=== PATIENT | male | born 1965 | race Caucasian/White ===

== ENCOUNTER 2020-11-18 15:45 | Outpatient (REF) | payer OTHER, SELFPAY | END 2020-11-18 15:46 | disposition home or self-care (01) | LOC: HO.LAB 15:45 | PROVIDERS: Visit Provider Internal Medicine | DX: Z20.822 Contact with and (suspected) exposure to COVID-19 (principal) | CPT/HCPCS: 36415; C9803; U0003 ==

== ENCOUNTER 2025-07-17 11:45 | Outpatient (AMB) | payer OTHER, SELFPAY ==
--- OUTSIDE RECORDS SUMMARY | 2025-07-17 11:46 | XMS_ITS | Encounter Summary ---
Author Organization [facility] Address [address] [place] [address] Care Team Providers Care Data Assistant Name Role Phone Sary Gregorio MD Primary Care Provider [phone] Reason for Visit * Reason Onset Date Comments Appointment 07/13/2025 1st notification Encounter Details Date Type Department Care Team ([facility] st Contact Info) Description 07/13/2025 Telephone Lung Screening Program - [address] [phone] Maryam Ann MA Social History Tobacco Use Types Packs/Day Years Used Date Smoking Tobacco: Every Day Cigarettes 1 40.6 Started: 11/24/1984 Smokeless Tobacco: Never Comments:Smoking 10 cigs geeta ly Alcohol Use Standard Drinks/Week Comments Not Currently 0 (1 standard drink = 0.6 oz pur e alcohol) Sex and Gender Information Value Date Recorded Sex Assigned at Not on file Legal Sex Male 1:16 PM EST Gender Identity Not on file Sexual Orientation Not on file documented as of this encounter Progress Notes * Maryam Ann MA - 07/13/2025 3:08 PM EDT Franco Kerr was contacted by the Lung Cancer Screening Program today to confirm the appointment of their Lung Cancer Screening. The patient is currently scheduled to have their screening on Wednesday July 30, 2025, at 915 Am at [facility].No answer left message For all screenings scheduled during the week, the patient will check in at Patient Registration on the first floor of the [facility] hospital. For screenings that take place on the weekend or after 5pm, check-in directly in Radiology. The patient was given the Lung Cancer Screening Program phone number, , to contact if they have any additional questions, concerns or need to reschedule. Patients are encouraged to call our office and reschedule if they are exhibiting any cold-like symptoms, have recently been treated for Pneumonia or Influenza (the flu) or have had another CT of their Chest since their last screening. documented in this encounter Plan of Treatment Upcoming Encounters Date Type Department Care Team (Late st Contact Info) Description 07/30/2025 9:15 AM EDT Appointment [facility] CT Scan [address] [place] [address] 09/14/2025 11:30 AM EST Office Visit Adult [address] [phone] Sary Gregorio MD [address] [place], [place] 12/08/2025 3:30 PM EST Office Visit Pulmonolgy - [place] [address] [phone] Joe Poole MD [address] [address] 05/24/2026 3:00 PM EDT Office Visit [address] [phone] Sary Gregorio MD [address] [place], [place] documented as of this encounter Visit Diagnoses Not on filedocumented in this encounter Care Teams Data Assistant Relationship Specialty Start Date End Date Sary Gregorio MD [address] [place], [place] PCP - General 01/14/23 documented as of this encounter
--- OUTSIDE RECORDS SUMMARY | 2025-07-17 11:46 | XMS_ITS | Clinical Summary ---
Author Organization [address] Address [address] [place] [phone] Phone Care Team Providers Care Snack Steward Name Role Phone Sary Gregorio MD Primary Care Provider [phone] Allergies Active Allergy Reactions Criticality Noted Date Comments Ciprofloxacin GI intolerance 07/09/2025 Medications SUMAtriptan (IMITREX) 25 mg tablet Take 1 tablet (25 mg total) by mouth. 03/05/20 24 Active ipratropium-alb uteroL (DUONEB) 0.5-2.5 mg/3 mL nebulizer solution Inhale 3 mL by mouth. 01/30/20 24 Active acetaminophen (TYLENOL 8 HOUR) 650 mg 8 hr tablet Take 1 tablet (650 mg total) by mouth every 8 (eight) hours if needed. OTC 01/30/20 24 Active sildenafiL (VIAGRA) 50 mg tablet Take 1 tablet (50 mg total) by mouth as needed. 12/03/19 24 Active cetirizine (ZyrTEC) 10 mg tablet Take 1 tablet (10 mg total) by mouth. Prescribed by Dr. Poole 01/30/20 23 Active amLODIPine (NORVASC) 5 mg tablet Take 1 tablet (5 mg total) by mouth 1 (one) time each day. 90 each 04/15/20 25 Active albuterol HFA (PROAIR HFA ; PROVENTIL HFA ; VENTOLIN HFA) 90 mcg/actuation inhalerIndicati ons:COPD exacerbation (CMS/HCC V24, CMS/HCC V28),Tobacco dependency Inhale 2 puffs by mouth every 4 (four) hours if needed for wheezing. 6.7 g 2 05/21/20 25 Active albuterol 2.5 mg /3 mL (0.083 %) nebulizer solution Take 3 mL (2.5 mg total) by nebulization every 6 (six) hours if needed for wheezing. 1080 mL 05/21/20 25 Active fluticasone-yandy meterol (ADVAIR DISKUS) 250-50 mcg/dose diskus inhalerIndicati ons:COPD exacerbation ([facility] V24, [facility] V28),Tobacco dependency Inhale 1 puff by mouth 2 (two) times a day. 1 each 1 05/21/20 25 Active cyclobenzaprine (FLEXERIL) 5 mg tabletIndicatio ns:muscle spasm Take 1 tablet (5 mg total) by mouth 2 (two) times a day if needed for muscle spasms. 30 tablet 06/29/20 25 2024 Active predniSONE (DELTASONE) 20 mg tablet Take 60 mg PO daily for 3 days, then take 40 mg PO daily for 3 days, then 20 mg PO daily for 3 days, then stop 18 tablet 04/15/20 25 2024 Discontinued Active Problems Problem Noted Date Diagnosed Date Asthma 09/04/2024 Acute intractable headache 01/30/2024 Pain in both feet 01/30/2024 Erectile dysfunction 12/03/2023 Pulmonary nodules 11/27/2017 Chronic obstructive pulmonar y disease ([facility] V24, [facility] V28) 11/27/2017 Overview (09/04/2024): Followed by Dr. Awad. LDCT in 2020, follow up in 12 months Substance abuse ([facility] V24, [facility] V28) 02/27 Essential hypertension 08/30/2015 Cyclical vomiting 08/17/2015 Gastritis 08/17/2015 Hyperlipidemia 07/02/2013 Chronic back pain 12/29/2012 Herniated lumbar intervertebral disc 11/24/2012 Cigarette smoker motivated to quit 08/25/2012 Encounters Date Type Department Care Team Description 07/13/2025 Telephone Lung Screening Program - [address] [phone] Maryam Ann [place] 07/09/2025 9:30 AM EDT Office Visit Adult [address] [phone] Akilah Whiting PA Acute pain of right shoulder (Primary Dx); Essential hypertension 07/07/2025 Telephone Adult [address] [phone] Heidy Merrill MA 06/30/2025 Telephone Adult Medicine [address] [phone] Sary Gregorio MD 06/29/2025 9:34 AM EDT - 06/29/2025 11:59 PM EDT Hospital Encounter [address] [phone] SOB (shortness of breath) Discharge Disposition: Home or Self Care 06/29/2025 9:34 AM EDT - 06/29/2025 11:59 PM EDT Hospital Encounter [address] [phone] Acute pain of right shoulder Discharge Disposition: Home or Self Care 06/29/2025 9:00 AM EDT Office Visit [address] [phone] Denise Perez NP Acute pain of right shoulder (Primary Dx); Primary hypertension; Tobacco dependency; Encounter for smoking cessation counseling 06/28/2025 Telephone Adult [address] [phone] Sary Gregorio MD 06/07/2025 8:15 AM EDT Office Visit [address] [place] [phone] Joe Poole MD Chronic obstructive pulmonary disease, unspecified COPD type (CMS/HCC V24, CMS/HCC V28) (Primary Dx); Tobacco abuse; SHERMAN (obstructive sleep apnea) 06/01/2025 Telephone Pulmonolgy [facility] [address] [phone] Joe Poole MD 05/[facility] 175 [facility] [address] [place] [phone] Joe Poole MD 05/21/2025 3:00 PM EDT Office Visit Adult [address] [phone] Sary Gregorio MD Annual physical exam (Primary Dx); Primary hypertension; Chronic obstructive pulmonary disease, unspecified COPD type (CMS/HCC V24, CMS/HCC V28); Erectile dysfunction, unspecified erectile dysfunction type; COPD exacerbation (CMS/HCC V24, CMS/HCC V28); Tobacco dependency; Groin lump; Hyperlipidemia, unspecified hyperlipidemia type; Hearing loss, unspecified hearing loss type, unspecified laterality 05/03/2025 Telephone Adult [address] [phone] Sary Gregorio MD 05/01/2025 Telephone Adult [address] [phone] Dilan Panchal MD from Last 3 Months Immunizations Name Administration Dates Next Due Pfizer SARS-CoV-2 COVID-19, mRNA, LNP-S, preservative free 04/04/2021,03/14/2021 Pneumococcal polysaccharide 23 valent (Pneumovax 23) 2yo and older 09/21/2014 Surgical History Surgery Date Site/Laterality Comments HERNIA REPAIR 01/04/2014 PROCEDURE: REPAIR UMBILICAL HERNIA; COMMENT: [facility]; mesh repair. UPPER GASTROINTESTINAL ENDOSCOPY 09/03/2014 PROCEDURE: ID UPPER GI ENDOSCOPY PERFORMED; COMMENT: [facility]; gastric erythema; bx done: Medical History Medical History Date Comments Back pain DX:Back pain HTN (hypertension) DX:HTN (hyper tension) Asthma DX:Asthma History of DVT (deep vein thrombosis) 06/13/2017 DX:History of DVT (deep vein thrombosis) Family History Medical History Relation Name Comments Autoimmune disease Neg Hx Blindness Neg Hx Breast cancer Neg Hx Cataracts Neg Hx Colon cancer Neg Hx Coronary artery disease Neg Hx Diabetes Neg Hx Glaucoma Neg Hx Heart attack Neg Hx Heart failure Neg Hx Hyperlipidemia Neg Hx Hypertension Neg Hx Macular degeneration Neg Hx Mental illness Neg Hx Prostate cancer Neg Hx Sleep apnea Neg Hx Strabismus Neg Hx Thyroid disease Neg Hx Social History Tobacco Use Types Packs/Day Years Used Date Smoking Tobacco: Every Day Cigarettes 1 40.6 Started: 11/24/1984 Smokeless Tobacco: Never Tobacco Cessation:Ready to Q uit: Not Asked; Counseling Given: Not Answered Comments:Smoking 10 cigs daily Alcohol Use Standard Drinks/Week Comments Not Currently 0 (1 standard drink = 0.6 oz pur e alcohol) Sex and Gender Information Value Date Recorded Sex Assigned at Not on file Legal Sex Male 1:16 PM EST Gender Identity Not on file Sexual Orientation Not on file Obstetrics History Last Filed Vital Signs Vital Sign Reading Time Taken Comments Blood Pressure 150/96 07/09/2025 9:27 AM EDT PROVIDER WILL BE RECHECK, NO C/P, NO SOB Pulse 91 07/09/2025 9:27 AM EDT Temperature 36.6 C (97.8 F) 07/09/2025 9:24 AM EDT Respiratory Rate 14 07/09/2025 9:24 AM EDT Oxygen Saturation 93% 07/09/2025 9:2 4 AM EDT Inhaled Oxygen Concentration - - Weight 98.9 kg (218 lb) 07/09/2025 9:24 AM EDT Height 190.5 cm (6' 3 ) 07/09/2025 9:24 AM EDT Body Mass Index 27.25 07/09/2025 9:24 AM EDT Plan of Treatment Upcoming Encounters Date Type Department Care Team (Late st Contact Info) Description 07/30/2025 9:15 AM EDT Appointment [facility] CT Scan [address] [place] [address] 09/14/2025 11:30 AM EST Office Visit Adult Medicine [facility] [address] [place] [phone] Sary Gregorio MD [address] [place] [address] 12/08/2025 3:30 PM EST Office Visit Pulmonolgy - [place] 175 [facility] [address] [place] [phone] Joe Poole MD 175 [facility] [place] [address] 05/24/2026 3:00 PM EDT Office Visit Adult Medicine [facility] [address] [place] [phone] Sary Gregorio MD [address] [place] [address] Health Maintenance Due Date Last Done Comments Hypertension/CHF/CAD Annual BMP Blood Test 09/12/2023 09/12/2022 COVID-19 Vaccine ( season) 2025 04/04/2021, 03/14/2021 Influenza Vaccine (#1) 2025 08/29/2020, 2009 Lung Cancer Screening (Low Dose CT) 07/29/2025 07/29/2024, 07/25/2023, 07/23/2022, Additional history exists Colorectal Cancer Screening: Colonoscopy 11/04/2025 Postponed from 10/13/2022 (Patient Refused) DTaP,Tdap,and Td Vaccines (1 - Tdap) 11/04/2025 Postponed from 1986 (Patient Refused) Depression Screening 11/04/2025 Postpon ed from 11/04/2024 (Patient Refused) HIV Screening 11/04/2025 Postponed from 10/13/2022 (Patient Refused) Hepatitis A Vaccines (1 of 2 - Risk 2-dose series) 11/04/2025 Postponed from 1986 (Patient Refused) Hepatitis B Vaccines (1 of 3 - 19+ 3-dose series) 11/04/2025 Postponed from 1986 (Patient Refused) Pneumococcal Vaccine: 50+ Years (2 of 2 - PCV) 11/04/2025 09/21/2014, 07/18/2010 Postponed from 09/21/2015 (Patient Refused) Zoster Vaccines (1 of 2) 11/04/2025 Pos tponed from 2017 (Patient Refused) Social Influencers of Health Screening 05/21/2026 05/21/2025, 02/28/2024 Cholesterol Screening (Lipid Panel) 09/12/2027 09/12/2022, 09/12/2022 Hepatitis C Screening Completed 06/29/2021 HIB Vaccines Aged Out No longer eligi ble based on patient's age to complete this topic HPV Vaccines Aged Out No longer eligi ble based on patient's age to complete this topic IPV Vaccines Aged Out No longer eligi ble based on patient's age to complete this topic MMR Vaccines Aged Out No longer eligi ble based on patient's age to complete this topic Meningococcal ACWY Vaccine Aged Out N o longer eligible based on patient's age to complete this topic Meningococcal B Vaccine Aged Out No l onger eligible based on patient's age to complete this topic RSV Immunization Patients Under 20 months Aged Out No longer eligible based on patient's age to complete this topic Varicella Vaccines Aged Out No longer eligible based on patient's age to complete this topic Procedures Procedure Name Priority Date/Time Associated Diagnosis Comments XR CHEST 2 VIEWS Routine 06/29/2025 9:52 AM EDT SOB (shortness of breath) XR SHOULDER 2+ VIEWS RIGHT Routine 06/29/2025 9:52 AM EDT Acute pain of right shoulder CT LUNG SCREENING LOW DOSE Routine 07/29/2024 6:12 PM EDT Encounter for screening for malignant neoplasm of respiratory organs HM ANNUAL BMP BLOOD TEST Routine 09/12/2022 LIPID PANEL Routine 09/12/2022 from Last 3 Months or Most Recently Relevant to Health Maintenance Results * XR Chest 2 Views (06/29/2025 9:52 AM EDT) Anatomical Region Laterality Modality Body Radiographic Breanna ging 06/29/2025 10:3 1 AM EDT Narrative 06/29/2025 10:32 AM EDT Chest, 2 views. History shortness of breath. Comparison with previous studies, latest from 11/13/2023. There are coarse linear densities in the right middle lobe most likely due to arm scarring. There is no pneumothorax, pleural effusions or acute focal consolidations. Cardiomediastinal silhouette is unremarkable. Again noted are degenerative changes in the thoracic spine. CONCLUSIONS: Findings suggestive of atelectasis/scarring in the right middle lobe. No new focal abnormalities. -------- FINAL REPORT -------- Dictated By: Anjali Buenrostro Dictated Date: 06/29/2025 10:31 ET Assigned Physician: Anjali Buenrostro Reviewed and Electronically Signed By: Anjali Buenrostro Signed Date: 06/29/2025 10:32 ET Workstation ID: [id number] Transcribed By: Self Edit Transcribed Date: 06/29/2025 10:31 ET Procedure Note Anjali Buenrostro MD - 06/29/2025 Chest, 2 views. History shortness of breath. Comparison with previous studies, latest from 11/13/2023. There are coarse linear densities in the right middle lobe most likely dueto arm scarring. There is no pneumothorax, pleural effusions or acutefocal consolidations. Cardiomediastinal silhouette is unremarkable. Againnoted are degenerative changes in the thoracic spine. CONCLUSIONS: Findings suggestive of atelectasis/scarring in the rightmiddle lobe. No new focal abnormalities. -------- FINAL REPORT -------- Dictated By: Anjali Buenrostro Dictated Date: 06/29/2025 10:31 ET Assigned Physician: Anjali Buenrostro Reviewed and Electronically Signed By: Anjali Buenrostro Signed Date: 06/29/2025 10:32 ET Workstation ID: [id number] Transcribed By: Self Edit Transcribed Date: 06/29/2025 10:31 ET us Sary Gregorio MD IMG XR PROCEDURES Final Res ult * XR Shoulder 2+ Views Right (06/29/2025 9:52 AM EDT) Anatomical Region Laterality Modality Upper Extremities, Shoulder Right Radi ographic Imaging 06/29/2025 10:0 8 PM EDT Narrative 06/29/2025 10:08 PM EDT Right shoulder, 4 views. History pain. There are moderate degenerative changes in the AC joint and mild degenerative changes in the glenohumeral joint. There is no visible fractures, dislocations or abnormal soft tissue calcifications. CONCLUSIONS: Degenerative changes as detailed. -------- FINAL REPORT -------- Dictated By: Anjali Buenrostro Dictated Date: 06/29/2025 22:08 ET Assigned Physician: Anjali Buenrostro Reviewed and Electronically Signed By: Anjali Buenrostro Signed Date: 06/29/2025 22:08 ET Workstation ID: [id number] Transcribed By: Self Edit Transcribed Date: 06/29/2025 22:08 ET Procedure Note Anjali Buenrostro MD - 06/29/2025 Right shoulder, 4 views. History pain. There are moderate degenerative changes in the AC joint and milddegenerative changes in the glenohumeral joint. There is no visiblefractures, dislocations or abnormal soft tissue calcifications. CONCLUSIONS: Degenerative changes as detailed. -------- FINAL REPORT -------- Dictated By: Anjali Buenrostro Dictated Date: 06/29/2025 22:08 ET Assigned Physician: Anjali Buenrostro Reviewed and Electronically Signed By: Anjali Buenrostro Signed Date: 06/29/2025 22:08 ET Workstation ID: [id number] Transcribed By: Self Edit Transcribed Date: 06/29/2025 22:08 ET us Denise Perez CONDUIT HELPER IMG XR PROCEDURES Final Resu lt * CT LUNG SCREENING LOW DOSE (07/29/2024 6:12 PM EDT) Anatomical Region Laterality Modality Computed Tomogra phy 07/29/2024 7:52 AM EDT Narrative 07/29/2024 6:[address] [facility] Diagnostic Imaging Department [address] [place] [phone] Patient: FRANCO KERR /Age/Sex: 1965 - 59 - M Unit#: [id number] Location/Status: SPDICATLS/REG CLI Mnemonic/Ordering Site: [facility] Ordering Physician: ROSE AWAD MD CT Lung Screening Low Dose - 07/29/24 - 0755 Report Status:Signed PROCEDURE: CT chest lung cancer screening low dose examination. INDICATION: CT lung screening. TECHNIQUE: Chest CT without intravenous contrast was performed. Low-dose examination was performed. Reformatted images were evaluated. DOSE: CTDIvol: 4.8mGy. Total exam DLP: 175.8mGy-cm COMPARISON: CT chest July 2023 FINDINGS: NODULES: No significant nodules are identified. LUNGS: Minimal atelectasis at the lung bases. No consolidation. OTHER: Limited views of the upper abdomen appear normal. Mediastinum appears within normal limits. Coronary atherosclerotic disease. Mild degenerative changes are noted throughout the spine. IMPRESSION: No significant nodules identified. Lung-RADS 1. Follow up examination is advised in one year. Dictating Physician: SARAH WAY MD Electronically Signed by: SARAH WAY MD Dic Date/Time: 07/29/241805 Sign date/Time: 07/29/241811 Procedure Note Sarah Way MD - 08/19/2024 [facility] Diagnostic Imaging Department [address] [place] [phone] Patient: FRANCO KERR /Age/Sex: 1965 - 59 - M Unit#: [id number] Location/Status: SPDICATLS/REG CLI Mnemonic/Ordering Site: [facility] Ordering Physician: ROSE AWAD MD CT Lung Screening Low Dose - 07/29/24 - 0755 Report Status:Signed PROCEDURE: CT chest lung cancer screening low dose examination. INDICATION: CT lung screening. TECHNIQUE: Chest CT without intravenous contrast was performed.Low-dose examination was performed. Reformatted images were evaluated. DOSE: CTDIvol: 4.8mGy. Total exam DLP: 175.8mGy-cm COMPARISON: CT chest July 2023 FINDINGS: NODULES: No significant nodules are identified. LUNGS: Minimal atelectasis at the lung bases. No consolidation. OTHER: Limited views of the upper abdomen appear normal. Mediastinumappears within normal limits. Coronary atherosclerotic disease. Milddegenerative changes are noted throughout the spine. IMPRESSION: No significant nodules identified. Lung-RADS 1. Follow up examination is advised in one year. Dictating Physician: SARAH WAY MD Electronically Signed by: SARAH WAY MD Dic Date/Time: 07/29/241805 Sign date/Time: 07/29/241811 Rose Awad MD [facility] CT PROCEDURES Final Result * Annual BMP Blood Test (09/12/2022) Annual BMP Blood Test abstracted Historical Provider HEALTH MAINTENANCE Final Result * (ABNORMAL) Lipid panel (09/12/2022) Pathologist [facility] LDL/HDL Ratio 4 0 - 4 Triglycerides 98 0 - 150 mg/dL Cholesterol 219(A) 0 - 200 mg/dL HDL 60 >=40 mg/dL LDL Cholesterol 140(A) 0 - 100 mg/dL Blood Venous blood specimen / Unknown Historical Provider LAB BLOOD ORDERABLES May l Result from Last 3 Months or Most Recently Relevant to Health Maintenance [place] [address] [place] [address] [employer] Care Teams Snack Steward Relationship Specialty Start Date End Date Sary Gregorio MD [address] [place] [address] PCP - General 01/14/23
--- OUTSIDE RECORDS SUMMARY | 2025-07-17 11:47 | XMS_ITS ---
Author Name [facility] Organization Unknown Care Team Organization Name Specialty Phone Email Start Date End Da te [facility] ADAM NIETO Primary Care [email or web address] 03/11/2023 4 [facility] Goldie Marie Primary Care 09/11/2022 4
--- NOTE | 2025-07-17 11:59 | AM.OFFWIN_ITS ---
Intake Vital Signs 07/17/25 12:02 Height 6 ft 3 in Weight 227 lb BMI 28.4 BP 122/70 Blood Pressure Location Lt brachial Position Sitting Respiration 16 Pulse 90 Pulse Source Pulse Oximeter Temp 98.0 F Temp Source Oral Pulse Oximetry (%) 94 Oxygen Delivery Method Room Air Intake Visit Reasons: WAREHOUSE ASSISTANT-Sore throat Intake Note: Pt is here today c/o sorethroat x5days Allergies ciprofloxacin Adverse Reaction (Verified 07/17/25 12:04) hives HPI HPI Comments History of Present Illness Details This is a 60-year-old male with a past medical history of hypertension and COPD, not currently oxygen dependent, presenting for evaluation of a sore throat that he has had for the past 6 days. Patient denies having any fevers, chills, ear pain, cough or shortness of breath. Patient has taken Tylenol only without relief of his discomfort. Review of Systems Const All systems reviewed & are unremarkable except as noted in HPI and below Reports no additional complaints, Denies chills, Denies fatigue, Denies fever(s) and Denies headache(s) Eyes Reports no additional complaints ENT Denies otalgia, Denies headache(s), Reports odynophagia, Denies sinus pain, Denies sinus pressure, Reports sore throat, Denies throat swelling and Denies tongue swelling Card Reports no additional complaints and Denies dyspnea Resp Reports no additional complaints, Denies cough and Denies dyspnea GI Reports odynophagia Skin/Breast Reports system reviewed and no additional complaints, except as documented Neuro Reports no additional complaints and Denies headache(s) Psych Reports no additional complaints Endo Denies fatigue Aller/Immun Denies throat swelling and Denies tongue swelling Physical Exam Vital Signs: Last Vital Signs Temp 98.0 F 07/17/25 12:02 Pulse 90 07/17/25 12:02 Resp 16 07/17/25 12:02 BP 122/70 07/17/25 12:02 Pulse Ox 94 07/17/25 12:02 Oxygen Delivery Method Room Air 07/17/25 12:02 BMI result Body Mass Index 28.4 Const General: cooperative, healthy appearing, comfortable, no acute distress, well developed, alert, awake and Physically active; No acute distress, ill appearing or tired appearing Nutritional Appearance: well nourished Orientation/consciousness: patient oriented x3 Limitations: no limitations HEENT Head: Yes normal to inspection and Yes normocephalic Ears: hearing grossly normal bilaterally, external ears normal, TM's normal bilaterally and EAC's normal General nose exam: Normal external nose present Face and sinus: Yes normal facial exam and Yes sinuses nontender Mouth: abnormal oral mucosae, oropharynx normal, moist mucous membranes and Abnormal oral and palatal mucosa present (posterior tongue is erythematous with white coating left > right) no ulcerations and no vesicles Teeth and gingiva: abnormal dentition (poor dentition, tooth 17/18 cracked, necrotic) and poor dentition Throat: Yes posterior oropharynx normal and No postnasal drainage Eyes General: appearance normal, both eyes and all related structures Neck Lymphatic: no lymphadenopathy noted Skin General skin exam: no rashes or lesions noted Neuro General: patient oriented x3 Psych Appearance: grossly normal Mental Status: mental status grossly normal Insight: Good insight present (Psych) Judgement: Good judgement present (Psych) Results AMB Rapid Strep AMB Rapid Strep Negative Last Edit by Tali Alvares CMA on 07/17/25 12:14 Results Reviewed Results Reviewed: Laboratory Last Values Strep Scn Rapid Clinic Negative 07/17/25 12:09 Rapid strep test is negative. Assessment & Plan Assessment & Plan (1) Oropharyngeal candidiasis: Comment: Patient's history coupled with his examination is consistent with an oropharyngeal candidiasis; patient states he does not rinse his mouth after using his steroid inhaler. Code(s): B37.0 - Candidal stomatitis Plan: Clotrimazole troches 5 times daily; Aleve or Naprosyn as needed for discomfort. Patient will follow up with his PCP at [facility] as needed. Orders: Orders AMB Rapid Strep Screen Today Z13.9 - Encounter for screening, unspecified Medications: New naproxen (Naprosyn) 500 mg PO BID 20 tabs 0RF clotrimazole 10 mg mucous membrane .five times daily 70 tabs 0RF Coding Level of Care Code Est Pt Level 3 (05257) Diagnoses Oropharyngeal candidiasis B37.0 Time Spent (min) 20
[2025-07-17 12:02] VITALS: BP 122/70; PULSE 90; RESP 16; TEMP 36.7; O2SAT 94; BMI 28.4
== END 2025-07-17 12:53 | disposition home or self-care (01) ==
LOC: HO.HMCWIC 11:45
PROVIDERS: PCP Internal Medicine; Visit Provider Physician Assistant
DX: B37.0 Candidal stomatitis (principal); Z13.9 Encounter for screening, unspecified

== ENCOUNTER → 2025-07-17 11:45 | Outpatient (BNVA) | payer OTHER, SELFPAY | PROVIDERS: PCP Internal Medicine; Visit Provider Physician Assistant | DX: B37.0 Candidal stomatitis (principal); I10 Essential (primary) hypertension; J44.9 Chronic obstructive pulmonary disease, unspecified | CPT/HCPCS: 87880; 99212 ==

== ENCOUNTER 2025-08-07 12:26 | Outpatient (AMB) | payer OTHER, SELFPAY ==
--- NOTE | 2025-08-07 12:29 | AM.OFFWIN_ITS ---
Intake Vital Signs 08/07/25 12:33 Height 6 ft 3 in Weight 225 lb BMI 28.1 BP 140/74 H Blood Pressure Location Rt brachial Position Sitting Respiration 16 Pulse 86 Pulse Source Pulse Oximeter Temp 98.3 F Temp Source Oral Pulse Oximetry (%) 94 Oxygen Delivery Method Room Air Intake Visit Reasons: ep sore throat phlem Intake Note: Pt is here today c/o sore throat and coughing up phelgm Patient Tobacco Use Status: Current everyday Tobacco user Allergies ciprofloxacin Adverse Reaction (Verified 08/07/25 12:34) hives HPI HPI Comments History of Present Illness Details This is a 60-year-old male with a past medical history of hypertension and COPD, not currently oxygen dependent, presenting for evaluation of a sore throat that he has had for the past 3 weeks coupled with a productive cough with green phlegm that is worse at night. Patient denies having any fevers or chills, ear pain, difficulty swallowing, chest pain or shortness of breath but does report fatigue. Patient has been taking [id number] cold medicine only without relief of his symptoms. [facility], [facility] Social History Patient Tobacco Use Status: Current everyday Tobacco user Review of Systems Const All systems reviewed & are unremarkable except as noted in HPI and below Denies body aches, Denies chills, Denies fever(s) and Denies headache(s) Eyes Reports no additional complaints and Reports itchy eyes ENT Reports no additional complaints, Denies otalgia, Denies headache(s), Denies lip swelling, Denies odynophagia and Reports sore throat Card Reports no additional complaints and Denies dyspnea Resp Reports change in phlegm color, Reports chest congestion, Reports cough, Reports excessive phlegm production and Denies dyspnea GI Reports no additional complaints, Denies diarrhea, Denies odynophagia and Denies vomiting Reports as per HPI Musc Reports as per HPI and Denies myalgias Skin/Breast Reports system reviewed and no additional complaints, except as documented Neuro Reports no additional complaints and Denies headache(s) Psych Reports no additional complaints Endo Reports no additional complaints Aller/Immun Reports no additional complaints, Denies urticaria, Reports itchy eyes, Denies lip swelling and Denies seasonal rhinorrhea Physical Exam Vital Signs: Last Vital Signs Temp 98.3 F 08/07/25 12:33 Pulse 86 08/07/25 12:33 Resp 16 08/07/25 12:33 BP 140/74 H 08/07/25 12:33 Pulse Ox 94 08/07/25 12:33 Oxygen Delivery Method Room Air 08/07/25 12:33 BMI result Body Mass Index 28.1 Patient is afebrile with a pulse ox of 94% on room air. Const General: cooperative, comfortable, no acute distress, well developed, alert, awake and Physically active; No ill appearing or lethargic Nutritional Appearance: well nourished Orientation/consciousness: patient oriented x3 and No lethargic Limitations: no limitations HEENT Head: Yes normal to inspection and Yes normocephalic Ears: hearing grossly normal bilaterally, external ears normal, TM's normal bilaterally and EAC's normal General nose exam: Normal external nose present Face and sinus: Yes normal facial exam Mouth: Normal oral and palatal mucosa present, moist mucous membranes and breath no malodorous Throat: Yes posterior oropharynx normal (There is no edema, erythema or exudates of the posterior oropharynx) and Yes postnasal drainage Eyes General: appearance normal, both eyes and all related structures Neck Lymphatic: no lymphadenopathy noted Resp Effort & Inspection: normal respiratory effort, able to speak in complete sentences, audible wheezes, no cough, respiratory effort not decreased and not tachypneic Auscultation: wheezes expiratory wheezes and throughout and diminished lung sounds diffuse Cardio Rate: regular rate Rhythm: regular rhythm Skin General skin exam: no rashes or lesions noted Neuro General: patient oriented x3 Psych Appearance: grossly normal Mental Status: mental status grossly normal Insight: Good insight present (Psych) Judgement: Good judgement present (Psych) Results AMB Rapid Strep AMB Rapid Strep Negative Last Edit by Tali Alvares CMA on 08/07/25 12:47 Results Reviewed Results Reviewed: Strep test is negative. Result is reviewed with the patient. Assessment & Plan Assessment & Plan (1) Pharyngitis: Comment: Patient's rapid strep test is negative and he has postnasal drip present on examination. Patient will be prescribed loratadine to take daily. Code(s): J02.9 - Acute pharyngitis, unspecified Qualifiers: Pharyngitis/tonsillitis etiology: unspecified etiology Qualified Code(s): J02.9 - Acute pharyngitis, unspecified Plan: Loratadine 10 mg once daily times 30 days, ibuprofen or Tylenol as needed. (2) Bronchitis: Comment: Patient has underlying COPD and describes having increased phlegm production. Patient has expiratory wheezes bilaterally with no focal area of concern on auscultation. Code(s): J40 - Bronchitis, not specified as acute or chronic Plan: Smoking cessation is discussed with the patient however he will be discharged home with doxycycline to take twice daily for the next 7 days. Patient is also encouraged to obtain Mucinex at the pharmacy and take daily with increase clear fluids. Orders: Orders AMB Rapid Strep Screen Today Z13.9 - Encounter for screening, unspecified Medications: New doxycycline hyclate 100 mg PO BID 14 caps 0RF loratadine (Allergy Relief (loratadine)) 10 mg PO DAILY 30 tabs 1RF guaifenesin (Cough Syrup) 200 mg (10 mL) PO Q4H PRN 473 mL 0RF cough Coding Level of Care Code Est Pt Level 3 (26395) Diagnoses Pharyngitis, unspecified etiology J02.9 Pharyngitis/tonsillitis etiology: unspecified etiology Bronchitis J40 Time Spent (min) 20
--- OUTSIDE RECORDS SUMMARY | 2025-08-07 12:29 | XMS_ITS | Encounter Summary ---
Author Organization [facility] Address [address] [place] [address] Care Team Providers Care Wildlife Ecologist Name Role Phone Sary Gregorio MD Primary Care Provider [phone] Reason for Visit * Reason Onset Date Comments Lip Laceration 07/30/2025 Encounter Details Date Type Department Care Team ([facility] st Contact Info) Description 07/30/2025 Nurse Triage Adult Medicine [facility] [address] [place] [address] Sary Gregorio MD [address] [place] [address] Social History Tobacco Use Types Packs/Day Years Used Date Smoking Tobacco: Every Day Cigarettes 1 40.7 Started: 11/24/1984 Smokeless Tobacco: Never Comments:Smoking 10 [...] as of this encounter Progress Notes * Constanza Ronquillo RN - 08/02/2025 12:58 PM EDT Pt has a large open area on his tongue from a broken tooth, tongue has been rubbing against the sharp tooth and now has a very large sore on his tongue . On Saturday pt was advised to call his dentis .He did not stated he cannot get in . He did go to an urgent care on Saturday and was treated with clotrimazole and naprosyn, advised home care states now pt cannot talk ( I do her him speaking in the back ground ) that the hole is bigger and pt is drooling , states he cannot swallow due to pain. When advised to go to the ed pt and refused stated wants to see his doctor now No available appointments today or tomorrow do not feel comfortable waiting per protocol pt is advised to go to the ed now wants to speak with nursing supervisor loading , will forward to practice or student teacher Reason for Disposition Unable to swallow or new onset of drooling Answer Assessment - Initial Assessment Questions 1. MECHANISM: How did the injury happen? Cut on a broken tooth 2. ONSET: When did the injury happen? (e.g., minutes, hours ago) 2 weeks, now larger sore 3. LOCATION: What part of the mouth is injured? tonmgue 4. APPEARANCE of INJURY: What does your mouth look like? Large open area , swollen and infected 5. BLEEDING: Is your mouth bleeding? If Yes, ask: Is it difficult to stop? No 6. SIZE: For cuts, bruises, or swelling, ask: How large is it? (e.g., inches or centimeters; entire lip) Small round area 7. PAIN: Is it painful? If Yes, ask: How bad is the pain? (Scale 0-10; or none, mild, moderate,severe) Severe 8. TETANUS: For any breaks in the skin, ask: When was your last tetanus booster? N/a 9. OTHER SYMPTOMS: Are you having any trouble breathing? Touble swallowing saliva, pt is drooling 10. : Is there any chance you are ? When was your last menstrual period? na Protocols used: Mouth Injury-A-AH * Eva Davis - 08/02/2025 10:11 AM EDT Tooth fix, tongue still has a hole, can't talk, drooling * Constanza Ronquillo RN - 07/30/2025 4:02 PM EDT Pt is awaiting booking by ortho for shoulder pain, he has not heard so he was checking to see if hecan book to be seen Pt caught his tongue on broken tooth, he will see dentist for this * Alyssa Watson - 07/30/2025 2:39 PM EDT Patient call requires triage: Symptoms patient is presenting: c/o hole in his tongue How long has patient had these symptoms?: 3-4 weeks For ALL patients calling to schedule any appointment (routine, sick visit, follow up, consult, etc.) in the outpatient setting please ask the following questions: Do you have fever of higher than 101, sore throat with difficulty swallowing or severe shortness ofbreath? no If YES to any of these above symptoms, send a message to triage and do not book. Red dot. If no, an audio or video visit should be booked. Have you had close contact with someone with Coronavirus in the last 14 days? no Have you traveled abroad? no Have you traveled recently to another state outside of [place], [place], [place], [place], [place], [place], [place]? no o If yes, did you quarantine for 14 days or have a negative covid test? no If yes to any of the above, patient is not to be scheduled in office until after 14 day quarantine or negative covid test. If pain or injury related was it due to an accident at work or from a motor vehicle accident? If yes, date of accident/Injury: No If yes, gather 3rd republican insurance information Third Green Party Information: not applicable PCP: Sary Gregorio MD Payor: [employer] HEALTH PLAN / [facility] / Product Type: *No Product type* / documented in this encounter Plan of Treatment Upcoming Encounters Date Type Department Care Team (Late st Contact Info) Description 08/12/2025 7:30 AM EDT Office Visit Adult Medicine [address] [phone] Sary Gregorio MD [address] [place], [place] 08/20/2025 2:00 PM EDT Evaluation Outpatient Rehabilitation [address] [phone] TaviaGelacio lemons, PT 09/14/2025 11:30 AM EST Office Visit Adult [address] [phone] Sary Gregorio MD [address] [place], [place] 12/08/2025 3:30 PM EST Office Visit Pulmonology - [address] [phone] Joe Poole MD [address] [address] 05/24/2026 3:00 PM EDT Office Visit [address] [phone] Sary Gregorio MD [address] [place], [place] documented as of this encounter Visit Diagnoses Not on filedocumented in this encounter Care Teams Wildlife Ecologist Relationship Specialty Start Date End Date Sary Gregorio MD [address] [place], [place] PCP - General 01/14/23 documented as of this encounter
--- OUTSIDE RECORDS SUMMARY | 2025-08-07 12:29 | XMS_ITS | Clinical Summary ---
Author Organization [address] Address [address] [place] [phone] Phone Care Team Providers Care Computer Teacher Name Role Phone Sary Gregorio MD Primary Care Provider Allergies Active Allergy Reactions Criticality Noted Date Comments Ciprofloxacin GI intolerance 07/09/2025 Medications SUMAtriptan (IMITREX) 25 mg tablet Take 1 tablet (25 mg total) by mouth. 4 Active ipratropium-albu teroL (DUONEB) 0.5-2.5 mg/3 mL nebulizer solution Inhale 3 mL by mouth. 4 Active acetaminophen (TYLENOL 8 HOUR) 650 mg 8 hr tablet Take 1 tablet (650 mg total) by mouth every 8 (eight) hours if needed. OTC 4 Active sildenafiL (VIAGRA) 50 mg tablet Take 1 tablet (50 mg total) by mouth as needed. 4 Active cetirizine (ZyrTEC) 10 mg tablet Take 1 tablet (10 mg total) by mouth. Prescribed by Dr. Poole 3 Active amLODIPine (NORVASC) 5 mg tablet Take 1 tablet (5 mg total) by mouth 1 (one) time each day. 90 each 5 Active albuterol HFA (PROAIR HFA ; PROVENTIL HFA ; VENTOLIN HFA) 90 mcg/actuation inhalerIndicatio ns:COPD exacerbation (CMS/HCC V24, CMS/HCC V28),Tobacco dependency Inhale 2 puffs by mouth every 4 (four) hours if needed for wheezing. 6.7 g 2 5 Active albuterol 2.5 mg /3 mL (0.083 %) nebulizer solution Take 3 mL (2.5 mg total) by nebulization every 6 (six) hours if needed for wheezing. 1080 mL 5 Active fluticasone-salm eterol (ADVAIR DISKUS) 250-50 mcg/dose diskus inhalerIndicatio ns:COPD exacerbation ([facility] V24, [facility] V28),Tobacco dependency Inhale 1 puff by mouth 2 (two) times a day. 1 each 1 5 Active cyclobenzaprine (FLEXERIL) 5 mg tabletIndication s:muscle spasm Take 1 tablet (5 mg total) by mouth 2 (two) times a day if needed for muscle spasms. 30 tablet 5 025 Active Active Problems Problem Noted Date Diagnosed Date Asthma 09/04/2024 Acute intractable headache 01/30/2024 Pain in both feet 01/30/2024 Erectile dysfunction 12/03/2023 Pulmonary nodules 11/27/2017 Chronic obstructive pulmonar y disease ([facility] V24, [facility] V28) 11/27/2017 Overview (09/04/2024): Followed by Dr. Awad. LDCT in 2020, follow up in 12 months Substance abuse ([facility] V24, [facility] V28) 02/27 Essential hypertension 08/30/2015 Cyclical vomiting 08/17/2015 Gastritis 08/17/2015 Hyperlipidemia 07/02/2013 Chronic back pain 12/29/2012 Herniated lumbar intervertebral disc 11/24/2012 Cigarette smoker motivated to quit 08/25/2012 Encounters Date Type Department Care Team Description 07/30/2025 9:12 AM EDT - 07/30/2025 11:59 PM EDT Hospital Encounter [facility] CT Scan [address] [place] [address] Encounter for screening for malignant neoplasm of respiratory organs; Nicotine dependence, cigarettes, uncomplicated Discharge Disposition: Home or Self Care 07/30/2025 Nurse Triage Adult Medicine [address] [phone] Sary Gregorio MD 07/13/2025 Telephone Lung Screening Program - [place] [facility] [address] [place] [phone] Maryam Ann MA 07/09/2025 9:30 AM EDT Office Visit Adult Medicine [address] [phone] Akilah Whiting PA Acute pain of right shoulder (Primary Dx); Essential hypertension 07/07/2025 Telephone Adult [address] [phone] Heidy Merrill [place] 06/30/2025 Telephone Adult [address] [phone] Sary Gregorio MD 06/29/2025 9:34 AM EDT - 06/29/2025 11:59 PM EDT Hospital Encounter [address] [phone] SOB (shortness of breath) Discharge Disposition: Home or Self Care 06/29/2025 9:34 AM EDT - 06/29/2025 11:59 PM EDT Hospital Encounter [address] [phone] Acute pain of right shoulder Discharge Disposition: Home or Self Care 06/29/2025 9:00 AM EDT Office Visit Adult [address] [phone] Denise Perez NP Acute pain of right shoulder (Primary Dx); Primary hypertension; Tobacco dependency; Encounter for smoking cessation counseling 06/28/2025 Telephone Adult [address] [phone] Sary Gregorio MD 06/07/2025 8:15 AM EDT Office Visit Pulmonology - [address] [phone] Joe Poole MD Chronic obstructive pulmonary disease, unspecified COPD type ([facility] [place]24, [facility] V28) (Primary Dx); Tobacco abuse; SHERMAN (obstructive sleep apnea) 06/01/2025 Telephone Pulmonology [address] [phone] Joe Poole MD 05/26/2025 Telephone Pulmonology [address] [phone] Joe Poole MD 05/21/2025 3:00 PM EDT Office Visit Adult Medicine [address] [phone] Sary Gregorio MD Annual physical exam (Primary Dx); Primary hypertension; Chronic obstructive pulmonary disease, unspecified COPD type ([facility] [place]24, [facility] V28); Erectile dysfunction, unspecified erectile dysfunction type; COPD exacerbation ([facility] [place]24, [facility] V28); Tobacco dependency; Groin lump; Hyperlipidemia, unspecified hyperlipidemia type; Hearing loss, unspecified hearing loss type, unspecified laterality from Last 3 Months Immunizations Immunization Administration Dates Next Due Pfizer SARS-CoV-2 COVID-19, mRNA, LNP-S, preservative free 04/04/2021,03/14/2021 Pneumococcal polysaccharide 23 valent (Pneumovax 23) 2yo and older 09/21/2014 Surgical History Surgery Date Site/Laterality Comments HERNIA REPAIR 01/04/2014 PROCEDURE: REPAIR UMBILICAL HERNIA; COMMENT: [facility]; mesh repair. UPPER GASTROINTESTINAL ENDOSCOPY 09/03/2014 PROCEDURE: [facility] UPPER GI ENDOSCOPY PERFORMED; COMMENT: [facility] [...] 1 40.7 Started: 11/24/1984 Smokeless Tobacco: Never Tobacco Cessation:Ready [...] 7:30 AM EDT Office Visit Adult Medicine [address] [phone] Sary Gregorio MD [address] [place] [address] 08/20/2025 2:00 PM EDT Evaluation Outpatient Rehabilitation [address] [phone] Gelacio Kelly, FORD 09/14/2025 11:30 AM EST Office Visit Adult Medicine [address] [phone] Sary Gregorio MD [address] [place], [place] 12/08/2025 3:30 PM EST Office Visit Pulmonology - [place] [facility] [address] [place] [phone] Joe Poole MD 175 [facility] [address] [place] [address] 05/24/2026 3:00 PM EDT Office Visit Adult [address] [phone] Sary Gregorio MD [address] [place], [place] Health Maintenance Due Date Last Done Comments Hypertension/CHF/CAD Annual BMP Blood Test 09/12/2023 09/12/2022 COVID-19 Vaccine ( season) 2025 04/04/2021, 03/14/2021 Influenza Vaccine (#1) 2025 08/29/2020, 2009 Lung Cancer Screening (Low Dose CT) 07/29/2025 07/29/2024, 07/25/2023, 07/23/2022, Additional history exists Colorectal Cancer Screening: Colonoscopy 11/04/2025 Postponed from 1967 (Patient Refused) DTaP,Tdap,and Td Vaccines (1 - [...] Cholesterol Screening (Lipid Panel) 09/12/2027 09/12/2022, 09/12/2022 RSV Immunization Adult Patients (1 - 1-dose 75+ series) 2042 Hepatitis C Screening Completed 06/29/2021 HIB Vaccines [...] Signed Date: 06/29/2025 10:32 ET Workstation ID: [id number] Transcribed By: Self Edit Transcribed Date: 06/29/2025 [...] Signed Date: 06/29/2025 10:32 ET Workstation ID: [id number] Transcribed By: Self Edit Transcribed Date: 06/29/2025 [...] Signed Date: 06/29/2025 22:08 ET Workstation ID: [id number] Transcribed By: Self Edit Transcribed Date: 06/29/2025 [...] Signed Date: 06/29/2025 22:08 ET Workstation ID: [id number] Transcribed By: Self Edit Transcribed Date: 06/29/2025 22:08 ET Denise Perez NP IMG XR PROCEDURES Final Resu lt * CT LUNG SCREENING LOW DOSE (07/29/2024 6:12 PM EDT) Anatomical Region Laterality Modality Computed Tomogra phy 07/29/2024 7:52 AM EDT Narrative 07/29/2024 6:12 PM EDT Diagnostic Imaging Department [address] [place] [address] Patient: ABBEYFRANCO./Age/Sex: 1965 - 59 - M Unit#: [id number] Location/Status: [facility] Mnemonic/Ordering Site: [facility] Ordering Physician: ROSE AWAD MD CT Lung [...] Procedure Note Sarah Way MD - 08/19/2024 Diagnostic Imaging Department [address] [place] [phone] Patient: ABBEYFRANCO D.O.B./Age/Sex: 1965 - 59 - M Unit#: [id number] [facility]Ordering Site[facility] Ordering Physician: ROSE AWAD MD CT Lung [...] SARAH WAY MD Electronically Signed by: SARAH WYA MD Dic Date/Time: 07/29/24 180 Sign date/Time: 07/29/241811 Rose Awad MD IMG CT PROCEDURES Final Result * Annual BMP Blood Test (09/12/2022) Annual BMP Blood Test abstracted Historical Provider HEALTH MAINTENANCE Final Result * (ABNORMAL) Lipid panel (09/12/2022) LDL/HDL Ratio 4 0 - 4 Triglycerides 98 0 - 150 mg/dL Cholesterol 219(A) 0 - 200 mg/dL HDL 60 >=40 mg/dL LDL Cholesterol 140(A) 0 - 100 mg/dL Blood Venous blood specimen / Unknown Historical Provider LAB BLOOD ORDERABLES May l Result from Last 3 Months or Most Recently Relevant to Health Maintenance Insurance [facility] [employer] Care Teams Computer Teacher Relationship Specialty Start Date End Date Sary Gregorio MD [address] [place] [address] PCP - General 01/14/23
[2025-08-07 12:33] VITALS: BP 140/74; PULSE 86; RESP 16; TEMP 36.8; O2SAT 94; BMI 28.1
== END 2025-08-07 13:25 | disposition home or self-care (01) ==
PROVIDERS: PCP Internal Medicine; Visit Provider Physician Assistant
DX: J02.9 Acute pharyngitis, unspecified (principal); J40 Bronchitis, not specified as acute or chronic; Z13.9 Encounter for screening, unspecified

== ENCOUNTER → 2025-08-07 12:26 | Outpatient (BNVA) | payer OTHER, SELFPAY | PROVIDERS: PCP Internal Medicine; Visit Provider Physician Assistant | DX: J40 Bronchitis, not specified as acute or chronic (principal); I10 Essential (primary) hypertension; J02.9 Acute pharyngitis, unspecified | CPT/HCPCS: 87880; 99212 ==